=== PATIENT | female | born 1985 | race Caucasian/White ===

== ENCOUNTER 2021-06-23 07:15 | Observation (INO) | payer BC ==
[~2021-06-23] VITALS: Ht 170.2 cm; Wt 97.1 kg
[2021-06-23] MEDS ORDERED: TRAZADONE PO (07:43)
[2021-06-23] MEDS ORDERED: D-AMPHETAMINE SALT PO (07:43)
[2021-06-23] MEDS ORDERED: PROTONIX20 MG PO (07:43)
[2021-06-23] MEDS ORDERED: BUTALB-ACETAMI1 EAC2 PO (07:43)
[2021-06-23] MEDS ORDERED: COLESTIPOL HCL1 GM PO (07:43)
[2021-06-23] MEDS ORDERED: LISINOPRIL10 MG PO (07:43)
[2021-06-23] MEDS ORDERED: SODIUM CHLORIDE 0.9% 50ML 100 ML ONE (07:47)
[2021-06-23] MEDS ORDERED: BUPIVACAINE HCL 0.5% INJ 30 ML VIAL INJ ONE (09:07)
[2021-06-23] MEDS ORDERED: ACETAMINOPHEN 1000 MG/100 ML 100 ML IV ONE (09:49)
[2021-06-23] MEDS ORDERED: ONDANSETRON HCL INJ 2MG/ML 2ML 2 MG/ML VIAL IV PRN (11:15)
[2021-06-23] MEDS ORDERED: FENTANYL CITRATE/PF 100MCG/2 ML INJ ONE (11:35)
[2021-06-23] MEDS ORDERED: PROPOFOL IV EMULSION 10 MG/ML 20 ML VIAL ONE (12:06)
[2021-06-23] MEDS ORDERED: ROCURONIUM BROMIDE 10 MG/ML 5ML VIAL IV ONE (12:06)
[2021-06-23] MEDS ORDERED: GLYCOPYRROLATE INJ 0.2 MG/ML VIAL ONE (12:06)
[2021-06-23] MEDS ORDERED: ONDANSETRON HCL INJ 2MG/ML 2ML 2 MG/ML VIAL ONE (12:06)
[2021-06-23] MEDS ORDERED: LIDOCAINE HCL 2% LOCAL INJ 5 ML SDV VIAL INJ ONE (12:06)
[2021-06-23] MEDS ORDERED: DEXAMETHASONE SOD PHOS INJ 4 MG/ML SDV ONE (12:06)
[2021-06-23] MEDS ORDERED: POVIDONE IODINE 0.05% 0.05 % ML PO ONE (12:06)
[2021-06-23] MEDS ORDERED: NEOSTIGMINE 1 MG/ML 10ML VIAL ONE (12:06)
[2021-06-23] MEDS ORDERED: SEVOFLURANE INHAL SOLN 250 ML PEN BTL ONE (12:06)
[2021-06-23] MEDS ORDERED: HYDROMORPHONE 1MG/1ML INJ ONE ×2 (12:40→13:34)
[2021-06-23] MEDS: Morphine 4mg Syringe 4 MG/ML INJ IV PRN ×3 (15:19→22:11)
[2021-06-23] MEDS ORDERED: Morphine 4mg Syringe 4 MG/ML INJ ONE (15:29)
[2021-06-23 15:34] VITALS: BP 134/75
[2021-06-23] MEDS: Cefazolin 1 GM in SODIUM CHLORIDE 0.9% 50ML 50 ML IV SCH ×2 (16:02→20:22)
[2021-06-23] MEDS: HYDROCODONE/APAP 5MG-325MG TAB PO PRN ×2 (16:02→20:22)
[2021-06-23 16:06] VITALS: BP 115/71
[2021-06-23] MEDS: SODIUM CHLORIDE 0.9% 1000ML 1,000 ML IV SCH (16:14)
[2021-06-23] MEDS: PANTOPRAZOLE SOD 40 MG TABEC PO SCH (17:57)
[2021-06-23] MEDS ORDERED: METOPROLOL TARTRATE INJ 1 MG/ML VIAL ONE (19:21)
[2021-06-23 20:00] VITALS: BP 139/80
[2021-06-23] MEDS: TRAZODONE HCL 50 MG TAB PO SCH (22:00)
[2021-06-23 23:48] VITALS: BP 121/81
[2021-06-24] VITALS (7 sets, daily range): BP systolic 123–139; BP diastolic 77–86
[2021-06-24] MEDS: Morphine 4mg Syringe 4 MG/ML INJ IV PRN ×6 (02:18→22:11)
[2021-06-24] MEDS: Cefazolin 1 GM in SODIUM CHLORIDE 0.9% 50ML 50 ML IV SCH (03:25)
[2021-06-24] MEDS: HYDROCODONE/APAP 5MG-325MG TAB PO PRN ×5 (03:25→20:08)
[2021-06-24] MEDS: SODIUM CHLORIDE 0.9% 1000ML 1,000 ML IV SCH ×2 (05:14→16:01)
[2021-06-24 05:28] LABS: BASOPHILS % 0.4 % (0.0-1.0); EOSINOPHILS % 0.4 % (0.0-6.0); HEMATOCRIT 34.6 % (34.2-44.1); HEMOGLOBIN 11.1 g/dL (12.0-16.0); LYMPHOCYTES # (AUTO) 1.6 (1.0-3.2); LYMPHOCYTES % 19.9 % (18.0-39.1); MEAN CORPUSCULAR HEMOGLOBIN 33.4 pg (28-32); MEAN CORPUSCULAR HGB CONC 32.1 g/dL (31-35); MEAN CORPUSCULAR VOLUME 104.2 fL (81-99); MONOCYTES # (AUTO) 0.4 (0.2-0.8); MONOCYTES % 4.9 % (4.4-11.3); NEUTROPHILS # (AUTO) 5.8 (2.1-6.9); PLATELET COUNT 349 x10e3/uL (140-360); RED BLOOD COUNT 3.32 x10e6/uL (3.6-5.1); RED CELL DISTRIBUTION WIDTH 13.3 % (11.7-14.4)
[2021-06-24] MEDS: PANTOPRAZOLE SOD 40 MG TABEC PO SCH ×2 (08:08→16:01)
[2021-06-24] MEDS: LISINOPRIL 20 MG TAB PO SCH (08:08)
[2021-06-24] MEDS ORDERED: D AMPHETAMINE SALT PO SCH ×2 (09:00)
[2021-06-24] MEDS: TRAZODONE HCL 50 MG TAB PO SCH (20:10)
[2021-06-25] VITALS: BP 116/67
[2021-06-25] MEDS: HYDROCODONE/APAP 5MG-325MG TAB PO PRN ×3 (00:12→09:52)
[2021-06-25] MEDS: SODIUM CHLORIDE 0.9% 1000ML 1,000 ML IV SCH ×2 (00:55→07:30)
[2021-06-25] MEDS: Morphine 4mg Syringe 4 MG/ML INJ IV PRN (03:12)
[2021-06-25 04:00] VITALS: BP 124/82
[2021-06-25] MEDS ORDERED: HYDROCODON-ACE1 EA11 PO (06:31)
[2021-06-25 07:56] VITALS: BP 122/80
[2021-06-25 08:00] VITALS: BP_SYST 122; BP_SYST 150; BP_DIAS 72; BP_DIAS 80
[2021-06-25] MEDS: LISINOPRIL 20 MG TAB PO SCH (08:44)
[2021-06-25] MEDS: PANTOPRAZOLE SOD 40 MG TABEC PO SCH (08:44)
[2021-06-25 20:00] VITALS: BP 138/68
== END 2021-06-25 10:10 | disposition home or self-care (01) ==
LOC: OR 07:15 → PACU V 14:48 → MED/SURG 15:34
PROVIDERS: ADMIT Surgery; ATTEND Surgery
DX: K44.9 Diaphragmatic hernia without obstruction or gangrene (principal); K21.9 Gastro-esophageal reflux disease without esophagitis; K81.1 Chronic cholecystitis; K22.70 Barrett's esophagus without dysplasia; I10 Essential (primary) hypertension; J45.909 Unspecified asthma, uncomplicated; F17.290 Nicotine dependence, other tobacco product, uncomplicated; Z20.822 Contact with and (suspected) exposure to COVID-19; Z01.818 Encounter for other preprocedural examination
CPT/HCPCS: 36415 ×3; 43280; 47562; 81025; 84132; 84702; 85025; 88304; 94799 ×2; G0378 ×3; J0131; J0690 ×2; J1100; J1170; J2001; J2270 ×3; J2405; J2704; J2710; J3010; J7030 ×2; S0164 ×3